=== PATIENT | male | born 1960 | race Caucasian/White ===

== ENCOUNTER 2016-11-27 14:04 | Inpatient (IN) | payer OTHER ==
[~2016-11-27] VITALS: Ht 175.3 cm; Wt 111.5 kg
[2016-11-30] MEDS ORDERED: DICL75TA PO (11:55)
[2016-11-30] MEDS ORDERED: ACET650T39 PO (11:55)
[2016-11-30] MEDS ORDERED: GABA300C5 PO (11:55)
[2016-11-30] MEDS ORDERED: IBUP200T2 PO (11:55)
[2016-12-15] MEDS ORDERED: VANCOMYCIN 1000 MG/NS 250 ML (for <70 kg) IV SCH ×2 (06:15)
[2016-12-15] MEDS ORDERED: SODIUM CHLORIDE 0.9% IV SCH (06:15)
[2016-12-15] MEDS ORDERED: ceFAZolin 2 GM PREMIX 50 ML IV SCH (06:15)
[2016-12-15] MEDS ORDERED: CHLORHEXIDINE GLUCONATE 4% SOLN 120 ML BTL TOPICAL SCH (06:15)
[2016-12-15] MEDS ORDERED: TRANEXAMIC ACID IV SCH (06:15)
[2016-12-15] MEDS ORDERED: EXPAREL PERI-ARTICULAR INJECTION (TOTAL VOL. 60 ML) P-ARTICULR SCH ×2 (06:15)
[2016-12-15 06:25] VITALS: BP 159/82; PULSE 87; RESP 20; TEMP 99; O2SAT 97
[2016-12-15] MEDS ORDERED: LACTATED RINGER'S 1000 ML IV PRN (06:30)
[2016-12-15] MEDS ORDERED: CHLORHEXIDINE GLUCONATE 2 % 1 PACK (2 CLOTHS) TOPICAL PRN (06:30)
[2016-12-15] MEDS ORDERED: METOPROLOL TARTRATE 25 MG TAB PO PRN (06:30)
[2016-12-15] MEDS ORDERED: POVIDONE IODINE 5% (ANTISEPSIS KIT) 4 APPLICATIONS EACH NARE PRN (06:30)
[2016-12-15] MEDS ORDERED: INSULIN HUMAN REGULAR 1,000 UNITS/10 ML VIAL SQ PRN (06:30)
[2016-12-15] MEDS ORDERED: SODIUM CHLORID 0.9% 500 ML IV PRN (06:30)
[2016-12-15] MEDS ORDERED: GENTAMICIN SULFATE 80 MG/2 ML VIAL ONE (07:22)
[2016-12-15] MEDS ORDERED: SODIUM CHLORIDE 0.9% 20 ML VIAL ONE (07:22)
[2016-12-15] MEDS ORDERED: EPINEPHrine HCL (1:1000) 1 MG/ML VIAL ONE (07:22)
[2016-12-15] MEDS ORDERED: XARE10TA PO (08:39)
[2016-12-15] MEDS ORDERED: HYDR-3583 PO (08:39)
--- NOTE | 2016-12-15 08:40 | HHI.FF ---
Face to Face Verification Diagnosis: (1) Status post total hip replacement, right Physical Therapy Gait training Hip: Total hip, Protocol: Right Right LE Weight Bearing: WB as tolerated Nursing Dressing Changes: Daily dressing change, Coverderm/Primapore (begin adding xeroform on POD 10) I have seen patient Jose Gutierrez on 12/15/16. My clinical findings support the need for the requested home health care services because: Ltd mobility - disease progression I certify that my clinical findings support that this patient is homebound because: Post-op weakness Maximus Kapoor Dec 15, 2016 08:40
--- NOTE | 2016-12-15 10:39 | PD.OP ---
cc: Anjel Garza MD Operative Report Date of Surgery: Dec 15, 2016 Preoperative Diagnosis: Severe right hip osteoarthritis Postoperative Diagnosis: Procedure: Right total hip arthroplasty Anesthesia: Gen. Surgeon: Anjel Garza Diagnostics Tech(s): CRISTINA Agrawal PA-C The surgical procedure was assisted by my physician assistant director. My P.A. presence was necessary throughout this case for the manipulation and positioning of the surgical extremity. My P.A. was assisting me throughout the duration of this procedure. The skill set of a physician assistant director was medically necessary to complete this procedure. During the surgical case the surgical clinical reviewer was working at the back table and the physician assistant director was directly assisting me. Operation and Findings: PLAN OF ACTIVITY Weight bear as tolerated. DRAINS: 7-mm KARISSA drain. IMPLANTS USED DePuy Corail size [11] collared stem with a size [54] [place] Gription cup and a [36+5] ceramic Biolox ceramic head, 54/36 Altrx liner DETAILS OF PROCEDURE: This patient has a long history of hip pain. Patient was found to have severe osteoarthritis. The patient had radiographic evidence of joint space narrowing with [id number] arthritis and osteophytes around the acetabulum as well as the femoral head. There was also some cystic changes. The patient failed conservative treatment with pain medications, anti-inflammatories, physical therapy, assistive devices including a cane, as well as therapeutic injection of the hip. Patient's hip arthritis was limiting his ability to ambulate and perform activities of daily living. The patient wished to proceed with surgery and informed consent was obtained. Operative site was marked. I discussed both posterior approach and anterior approach with the patient and decision was made for anterior approach. Patient was brought to OR and placed on OR table. IV sedation and general anesthesia was administered by anesthesiologist. Patient positioned on a Aislinn table and was given IV antibiotics. Time-out procedure was performed. The hip and thigh were prepped with alcohol followed by Hibiclens. The thigh was draped in the usual sterile fashion. Clean Air Suite was used for this procedure. The procedure began with a 5-inch incision over the anterolateral thigh. Subcutaneous tissue was dissected with Bovie. The fascia over the tensa fasciae latae was incised. Care was taken to avoid injury to the lateral femoral cutaneous nerve. The tensor muscle was retracted laterally. Sartorius was retracted medially. Retractors were now placed. The reflected head of the rectus is now elevated. A capsulotomy was performed over the anterior head capsule. Sutures were placed to help retract the capsule. At this point the femoral head and neck were identified. With soft tissue protected, oscillating saw was used to make a cut through the femoral neck, the femoral head was now removed. At this point attention was turned to preparation of the acetabulum. The labrum was excised. The acetabulum was sequentially reamed up to size [54]. A [place] cup was now placed. Fluoroscopy was used to aid in identification of appropriate version. Cup was fully impacted and found to have excellent fit. Hole eliminator was now placed. The liner was now impacted into the cup. At this point the hip was externally rotated. A hook was placed around the proximal femur. The capsule was released off the lateral and medial femur. The hip was now extended and adducted. Retractors were placed around the proximal femur to allow for exposure. Large osteophytes were identified around the lateral aspect of the acetabulum. These were removed using a rongeur. A box osteotome was used to remove the lateral cortex of the femoral neck. A broach was used to help lateralize the prosthesis. Canal finder was used to create a path down the canal. Next, the canal was sequentially broached up to size [11]. This was found to be an excellent fit. Calcar planer was placed. A standard head was placed, and the hip was reduced. The hip was found to have excellent stability with good range of motion. The leg lengths were measured under fluoroscopy and found to be equal compared to preoperatively. Trial broach was removed. The Corail stem was opened. Stem was fully impacted into the proximal femur in appropriate version. The femoral head was placed. The hip was again reduced. Fluoroscopy confirmed excellent alignment of prosthesis. The wound was thoroughly irrigated and capsule was closed with #1 Vicryl. The fascia over the tensor fasciae muscle was closed with #1 Vicryl, subcutaneous tissue was closed with 3-0 Vicryl and the skin was closed with tiffanie and Dermabond skin closure. The capsule layers were injected with a mixture of saline and bupivicaine. Dressings were applied. The patient was transferred to Recovery Room in stable condition. Anjel Garza MD Dec 15, 2016 10:39
[2016-12-15] MEDS ORDERED: NALOXONE HCL 0.4 MG/ML AMP IV PRN (10:45)
[2016-12-15] MEDS ORDERED: MORPHINE SULFATE 4 MG/ML INJ IV PUSH PRN (10:45)
[2016-12-15] MEDS ORDERED: SODIUM CHLORIDE 0.9% FLUSH 5 ML FLUSH IVF PRN (10:45)
[2016-12-15] MEDS ORDERED: DEXAMETHASONE SOD PHOS 20 MG/5 ML VIAL IV PUSH ONE (10:45)
[2016-12-15] MEDS ORDERED: ONDANSETRON HCL 4 MG/2 ML VIAL IVP PRN (10:45)
[2016-12-15] MEDS ORDERED: ACETAMINOPHEN/HYDROcodone 325 MG/7.5 MG TAB PO PRN (10:45)
[2016-12-15] MEDS ORDERED: ACETAMINOPHEN/HYDROcodone 325 MG/10 MG TAB PO PRN (10:45)
--- NOTE | 2016-12-15 10:49 | RADRPT ---
EXAM DATE/TIME: 12/15/2016 08:33 [facility] COMPARISON: No previous studies available for comparison. INDICATIONS : Right total hip arthroplasty. MEDICAL HISTORY : None. SURGICAL HISTORY : None. ENCOUNTER: Initial ACUITY: 1 day PAIN SCORE: Non-responsive. LOCATION: Right hip FINDINGS: A two view examination of the right hip was performed. Postsurgical changes following hip replacemen t are noted. Prostheses are well seated and satisfactorily aligned. There is no evidence of acute fracture. CONCLUSION: Satisfactory postoperative appearance of the right hip following joint replacement. Krishna Restrepo MD on December 15, 2016 at 10:47 Board Certified Radiologist. This report was verified electronically.
[2016-12-15] MEDS ORDERED: Post-op Orders (for Pharmacy) MISC XX ONE (10:59)
[2016-12-15] MEDS ORDERED: TRANEXAMIC ACID INJ 1,000 MG in SODIUM CHLORIDE 0.9% INJ 100 ML IV ONE (11:00)
[2016-12-15] MEDS ORDERED: MIDAZOLAM HCL 2 MG/2 ML VIAL ONE (11:10)
[2016-12-15] MEDS ORDERED: fentaNYL CITRATE 250 MCG/5 ML AMP ONE (11:11)
[2016-12-15] MEDS ORDERED: MORPHINE SULFATE 4 MG/ML INJ ONE (11:11)
[2016-12-15] MEDS: LACTATED RINGER'S 1000 ML INJ 1,000 ML IV SCH ×2 (11:26→19:51)
[2016-12-15] MEDS: KETOROLAC TROMETHAMINE 30 MG/ML (IVP) VIAL IV PUSH SCH ×2 (11:38→23:00)
[2016-12-15] MEDS ORDERED: LACTATED RINGER'S 1000 ML INJ 1,000 ML IV ONE (12:00)
[2016-12-15] MEDS ORDERED: DO NOT ADM ANY ANTICOAGULANT DRUGS PRN (12:00)
[2016-12-15] MEDS ORDERED: PROPOFOL 200 MG/20 ML AMP IV ONE (12:00)
[2016-12-15] MEDS ORDERED: NEOSTIGMINE 3 MG/3 ML SYR IV ONE (12:00)
[2016-12-15] MEDS ORDERED: ONDANSETRON HCL 4 MG/2 ML VIAL IV PUSH ONE (12:00)
[2016-12-15] MEDS ORDERED: ePHEDrine/NS 25 MG/5 ML SYR IV ONE (12:00)
[2016-12-15] MEDS ORDERED: PHENYLEPH/NS 1000 MCG/10 ML SYR IV ONE (12:00)
--- NOTE | 2016-12-15 12:20 | RADRPT ---
EXAM DATE/TIME: 12/15/2016 11:23 [facility] COMPARISON: No previous studies available for comparison. INDICATIONS : Post op right hip MEDICAL HISTORY : None. SURGICAL HISTORY : None. ENCOUNTER: Initial ACUITY: 1 day PAIN SCORE: 0/10 LOCATION: Right hip and pelvis FINDINGS: Patient is status post placement of a right hip prosthesis. There is good position and alignment of t he prosthesis and bony structures. The bony structures are grossly intact. Postsurgical changes are p resent. There is extensive osteoarthritis of the left hip joint. CONCLUSION: Good position and alignment on this postoperative examination. Luis Mayes MD on December 15, 2016 at 12:19 Board Certified Radiologist. This report was verified electronically.
[2016-12-15] MEDS: ceFAZolin 2 GM PREMIX 50 ML IV SCH ×2 (13:35→19:51)
[2016-12-15 14:20] VITALS: BP 125/73; PULSE 96; RESP 18; TEMP 96.4; O2SAT 98
[2016-12-15 16:30] VITALS: O2SAT 98
[2016-12-15] MEDS: VANCOMYCIN INJ 1,000 MG in SODIUM CHLOR 0.9% 250 ML INJ 250 ML IV SCH (18:51)
[2016-12-15] MEDS: SODIUM CHLORIDE 0.9% FLUSH 5 ML FLUSH IVF SCH (19:52)
[2016-12-15 20:23] VITALS: BP 122/65; PULSE 92; RESP 18; TEMP 97.1; O2SAT 95
[2016-12-15 20:46] VITALS: O2SAT 98
[2016-12-15] MEDS ORDERED: GABAPENTIN 300 MG CAP PO SCH (21:00)
[2016-12-16 00:15] VITALS: BP 151/69; PULSE 94; RESP 18; TEMP 96.7; O2SAT 96
[2016-12-16] MEDS ORDERED: MAGNESIUM HYDROXIDE SUSP 30 ML CUP PO PRN (01:00)
[2016-12-16] MEDS: ceFAZolin 2 GM PREMIX 50 ML IV SCH (01:05)
[2016-12-16 04:33] VITALS: BP 129/75; PULSE 84; RESP 18; TEMP 96.7; O2SAT 97
[2016-12-16] MEDS: VANCOMYCIN INJ 1,000 MG in SODIUM CHLOR 0.9% 250 ML INJ 250 ML IV SCH (06:13)
--- NOTE | 2016-12-16 07:11 | PD.ORT.PN ---
Subjective Subjective Remarks Doing well POD 1 from surgery of right total hip arthroplasty Objective Vitals Vital Signs Date Time Temp Pulse Resp B/P Pulse Ox O2 Delivery O2 Flow Rate FiO2 12/16/16 04:33 96.7 84 18 129/75 97 12/16/16 00:15 96.7 94 18 151/69 96 12/15/16 20:46 98 21 12/15/16 20:23 97.1 92 18 122/65 95 12/15/16 16:30 98 21 12/15/16 14:20 96.4 96 18 125/73 98 12/15/16 13:30 97.4 95 14 117/77 100 Nasal Cannula 2 12/15/16 13:00 99 17 119/58 99 Nasal Cannula 2 12/15/16 12:30 86 15 120/59 99 Nasal Cannula 2 12/15/16 12:00 88 14 129/74 99 Nasal Cannula 2 12/15/16 11:45 74 13 128/75 99 Nasal Cannula 2 12/15/16 11:30 96 14 136/85 94 Nasal Cannula 2 12/15/16 11:15 93 14 137/74 93 Nasal Cannula 2 12/15/16 11:02 98.5 110 16 144/91 95 Simple Mask 6 I/O 12/15/16 12/15/16 12/15/16 12/16/16 12/16/16 12/16/16 06:59 14:59 22:59 06:59 14:59 22:59 Intake Total 1250 ml 719 ml 1226 ml Output Total 510 ml 160 ml 1380 ml Balance 740 ml 559 ml -154 ml Intake Oral 50 ml 480 ml 480 ml IV Total 100 ml 239 ml 746 ml Other 1100 ml Output Urine Total 100 ml 1300 ml Drainage Total 60 ml 60 ml 80 ml Estimated Blood Loss 450 ml # Voids 1 1 # Bowel Movements 0 0 Imaging Last 24 hours Impressions Hip and Pelvis X-Ray 12/15/16 1033 Signed Impressions: Service Date/Time: Thursday, December 15, 2016 11:23 - CONCLUSION: Good position and alignment on this postoperative examination. Luis Mayes MD Objective Remarks Right lower extremity: Clean dry dressings intact. Minimal swelling. Intact sensation distally with good capillary refills. Strong dorsal flexion plantar flexion foot Assessment & Plan Assessment and Plan Right anterior total hip arthroplasty POD 1 Physical therapy weightbearing as tolerated twice a day Dressing change today after physical therapy with drain removal Lovenox then convert to Xarelto after discharge Plan on discharge today to home if doing well otherwise tomorrow morning Incentive spirometry Case management for home health care with 's choice Follow-up Dr. Garza or PA in 2 weeks Felix Mackey Jr. Dec 16, 2016 07:11
[2016-12-16] MEDS ORDERED: WALKER WHEELS/F1 MIS (07:12)
[2016-12-16 07:54] VITALS: BP 154/75; PULSE 96; RESP 18; TEMP 96.1; O2SAT 97
[2016-12-16 08:13] LABS: HEMATOCRIT 36.3 % (39.0-51.0); REVIEW FLAG FINAL
[2016-12-16] MEDS: SODIUM CHLORIDE 0.9% FLUSH 5 ML FLUSH IVF SCH (09:00)
[2016-12-16] MEDS ORDERED: ENOXAPARIN SODIUM 40 MG/0.4 ML SYRINGE SQ SCH (10:00)
[2016-12-16 11:17] VITALS: O2SAT 97
[2016-12-16] MEDS: LACTATED RINGER'S 1000 ML INJ 1,000 ML IV SCH (11:33)
[2016-12-16 11:58] VITALS: BP 123/64; PULSE 110; RESP 18; TEMP 95.4; O2SAT 97
[2016-12-16] MEDS: KETOROLAC TROMETHAMINE 30 MG/ML (IVP) VIAL IV PUSH SCH (12:00)
[2016-12-16] MEDS ORDERED: DOCUSATE SODIUM 100 MG CAP PO SCH (21:00)
== END 2016-12-16 20:34 | disposition home health service (06) | DRG 470 ==
LOC: HSDI 12-15 05:45 → EDUNIT# 12-15 10:30 → N06B 12-15 14:05
PROVIDERS: ADMIT Orthopaedic Surgery Orthopaedic Trauma; ATTEND Orthopaedic Surgery Orthopaedic Trauma
PROC: 0SR904A Replacement of Right Hip Joint with Ceramic on Polyethylene Synthetic Substitute, Uncemented, Open Approach (ICD-10-PCS; principal; 2016-12-15 08:03)
DX: M16.11 Unilateral primary osteoarthritis, right hip (principal); E66.9 Obesity, unspecified; Z68.36 Body mass index [BMI] 36.0-36.9, adult
CPT/HCPCS: 73501; 73502; 76000; 85014; 85018; 86850; 86900; 86901; C1776; C9290; J0171; J0690; J1100; J1580; J1650; J1885; J2250; J2270; J2370; J2405; J2710; J3010; J3370; J7050; J7120

== ENCOUNTER → 2016-11-30 | Outpatient (CLI) | payer OTHER ==
[~2016-11-30] MED LIST: ACET650T39 PO; DICL75TA PO; GABA300C5 PO; HYDR-3583 PO; IBUP200T2 PO; WALKER WHEELS/F1 MIS; XARE10TA PO
== END ==
LOC: CPRE 11:43
PROVIDERS: ATTEND Orthopaedic Surgery Orthopaedic Trauma
DX: Z01.812 Encounter for preprocedural laboratory examination (principal); M79.609 Pain in unspecified limb; Z13.9 Encounter for screening, unspecified; Z79.01 Long term (current) use of anticoagulants; Z96.60 Presence of unspecified orthopedic joint implant

== ENCOUNTER → 2017-02-02 | Outpatient (CLI) | payer OTHER ==
[~2017-02-02] MED LIST changes: -DICL75TA PO; -IBUP200T2 PO; +WALKER/ADULT/FO1 MIS
== END ==
LOC: CPRE 09:40
PROVIDERS: ATTEND Orthopaedic Surgery Orthopaedic Trauma
DX: Z01.810 Encounter for preprocedural cardiovascular examination (principal); Z01.811 Encounter for preprocedural respiratory examination; Z01.812 Encounter for preprocedural laboratory examination; M79.609 Pain in unspecified limb

== ENCOUNTER 2017-02-09 05:18 | Inpatient (IN) | payer OTHER ==
[~2017-02-09] VITALS: Ht 175.3 cm; Wt 109.5 kg
[~2017-02-09 05:18] MED LIST changes: -HYDR-3583 PO; -WALKER WHEELS/F1 MIS; -WALKER/ADULT/FO1 MIS; -XARE10TA PO
[2017-02-09] MEDS ORDERED: TRANEXAMIC ACID IV SCH (05:45)
[2017-02-09] MEDS ORDERED: INSULIN HUMAN REGULAR 1,000 UNITS/10 ML VIAL SQ PRN (05:45)
[2017-02-09] MEDS ORDERED: CHLORHEXIDINE GLUCONATE 4% SOLN 120 ML BTL TOPICAL SCH (05:45)
[2017-02-09] MEDS ORDERED: LACTATED RINGER'S 1000 ML IV PRN (05:45)
[2017-02-09] MEDS ORDERED: SODIUM CHLORID 0.9% 500 ML IV PRN (05:45)
[2017-02-09] MEDS ORDERED: POVIDONE IODINE 5% (ANTISEPSIS KIT) 4 APPLICATIONS EACH NARE PRN (05:45)
[2017-02-09] MEDS ORDERED: ceFAZolin 2 GM PREMIX 50 ML IV SCH (05:45)
[2017-02-09] MEDS ORDERED: METOPROLOL TARTRATE 25 MG TAB PO PRN (05:45)
[2017-02-09] MEDS ORDERED: VANCOMYCIN 1000 MG/NS 250 ML (for <70 kg) IV SCH ×2 (05:45)
[2017-02-09] MEDS ORDERED: CHLORHEXIDINE GLUCONATE 2 % 1 PACK (2 CLOTHS) TOPICAL PRN (05:45)
[2017-02-09] MEDS ORDERED: EXPAREL PERI-ARTICULAR INJECTION (TOTAL VOL. 60 ML) P-ARTICULR SCH ×2 (05:45)
[2017-02-09] MEDS ORDERED: SODIUM CHLORIDE 0.9% IV SCH (05:45)
[2017-02-09] MEDS ORDERED: GENTAMICIN SULFATE 80 MG/2 ML VIAL ONE (06:20)
[2017-02-09] MEDS ORDERED: ACETAMINOPHEN 1000 MG/100 ML 100 ML IV ONE (06:29)
[2017-02-09] MEDS ORDERED: FAMOTIDINE 20 MG/2 ML VIAL ONE (06:29)
[2017-02-09] MEDS ORDERED: HYDR-3583 PO (08:26)
[2017-02-09] MEDS ORDERED: WALKER/ADULT/FO1 MIS (08:26)
[2017-02-09] MEDS ORDERED: XARE10TA PO (08:26)
--- NOTE | 2017-02-09 08:27 | HHI.FF ---
Face to Face Verification Diagnosis: (1) Status post total hip replacement, left Physical Therapy Gait training Hip: Total hip, Protocol: Left, Progress to weight bearing Left LE Weight Bearing: WB as tolerated Nursing Dressing Changes: Daily dressing change, Coverderm/Primapore (begin adding xeroform on POD 10) I have seen patient Jsoe Gutierrez on 02/09/17. My clinical findings support the need for the requested home health care services because: Ltd mobility - disease progression I certify that my clinical findings support that this patient is homebound because: Post-op weakness Maximus Kapoor Feb 09, 2017 08:27
--- NOTE | 2017-02-09 09:05 | PD.OP ---
cc: Anjel Garza MD Operative Report Date of Surgery: Feb 09, 2017 Preoperative Diagnosis: Severe left hip osteoarthritis Postoperative Diagnosis: Procedure: Left total hip arthroplasty via anterior approach Anesthesia: Gen. Surgeon: Anjel Garza Superintendent [employer](s): CRISTINA Agrawal PA-C The surgical procedure was assisted by my physician executive assistant. My P.A. presence was necessary throughout this case for the manipulation and positioning of the surgical extremity. My P.A. was assisting me throughout the duration of this procedure. The skill set of a physician executive assistant was medically necessary to complete this procedure. During the surgical case the dialysis equipment technician was working at the back table and the physician executive assistant was directly assisting me. Operation and Findings: PLAN OF ACTIVITY Weight bear as tolerated. DRAINS: 7-mm KARISSA drain. IMPLANTS USED DePuy Corail size [13] collared stem with a size [56] [place] Gription cup, [56 /36] Altrx poly liner, and a [36+5] ceramic Biolox ceramic head. DETAILS OF PROCEDURE: This patient has a long history of hip pain. Patient was found to have severe osteoarthritis. The patient had radiographic evidence of joint space narrowing with akdg-wj-[id number] arthritis and osteophytes around the acetabulum as well as the femoral head. There was also some cystic changes. The patient failed conservative treatment with pain medications, anti-inflammatories, physical therapy, assistive devices including a cane, as well as therapeutic injection of the hip. Patient's hip arthritis was limiting his ability to ambulate and perform activities of daily living. The patient wished to proceed with surgery and informed consent was obtained. Operative site was marked. I discussed both posterior approach and anterior approach with the patient and decision was made for anterior approach. Patient was brought to OR and placed on OR table. IV sedation and general anesthesia was administered by anesthesiologist. Patient positioned on a Aislinn table and was given IV antibiotics. Time-out procedure was performed. The hip and thigh were prepped with alcohol followed by Hibiclens. The thigh was draped in the usual sterile fashion. Clean Air Suite was used for this procedure. The procedure began with a 5-inch incision over the anterolateral thigh. Subcutaneous tissue was dissected with Bovie. The fascia over the tensa fasciae latae was incised. Care was taken to avoid injury to the lateral femoral cutaneous nerve. The tensor muscle was retracted laterally. Sartorius was retracted medially. Retractors were now placed. The reflected head of the rectus is now elevated. A capsulotomy was performed over the anterior head capsule. Sutures were placed to help retract the capsule. At this point the femoral head and neck were identified. With soft tissue protected, oscillating saw was used to make a cut through the femoral neck, the femoral head was now removed. At this point attention was turned to preparation of the acetabulum. The labrum was excised. The acetabulum was sequentially reamed up to size [56]. A [place] cup was now placed. Fluoroscopy was used to aid in identification of appropriate version. Cup was fully impacted and found to have excellent fit. Hole eliminator was now placed. The liner was now impacted into the cup. Patient also had large osteophytes around the acetabulum. A rongeur and osteotome were used to remove most of the osteophytes. At this point the hip was externally rotated. A hook was placed around the proximal femur. The capsule was released off the lateral and medial femur. The hip was now extended and adducted. Retractors were placed around the proximal femur to allow for exposure. A box osteotome was used to remove the lateral cortex of the femoral neck. A broach was used to help lateralize the prosthesis. Canal finder was used to create a path down the canal. Next, the canal was sequentially broached up to size [13]. This was found to be an excellent fit. Calcar planer was placed. A standard head was placed, and the hip was reduced. The hip was found to have excellent stability with good range of motion. The leg lengths were measured under fluoroscopy and found to be equal compared to preoperatively. Trial broach was removed. The Corail stem was opened. Stem was fully impacted into the proximal femur in appropriate version. The femoral head was placed. The hip was again reduced. Fluoroscopy confirmed excellent alignment of prosthesis. The wound was thoroughly irrigated and capsule was closed with #1 Vicryl. The fascia over the tensor fasciae muscle was closed with #1 Vicryl, subcutaneous tissue was closed with 3-0 Vicryl and the skin was closed with tiffanie and Dermabond skin closure. The capsule layers, muscle, and subcutaneous tissue were injected with a mixture of saline and bupivicaine. Dressings were applied. The patient was transferred to Recovery Room in stable condition. Anjel Garza MD Feb 09, 2017 09:05
[2017-02-09] MEDS ORDERED: Post-op Orders (for Pharmacy) MISC XX ONE (09:15)
[2017-02-09] MEDS ORDERED: MORPHINE SULFATE 4 MG/ML INJ IV PUSH PRN (09:15)
[2017-02-09] MEDS ORDERED: ONDANSETRON HCL 4 MG/2 ML VIAL IVP PRN (09:15)
[2017-02-09] MEDS ORDERED: ACETAMINOPHEN/HYDROcodone 325 MG/7.5 MG TAB PO PRN (09:15)
[2017-02-09] MEDS ORDERED: SODIUM CHLORIDE 0.9% FLUSH 5 ML FLUSH IVF PRN (09:15)
[2017-02-09] MEDS ORDERED: NALOXONE HCL 0.4 MG/ML AMP IV PRN (09:15)
[2017-02-09] MEDS ORDERED: DO NOT ADM ANY ANTICOAGULANT DRUGS PRN (09:24)
[2017-02-09] MEDS: LACTATED RINGER'S 1000 ML INJ 1,000 ML IV SCH ×2 (09:30→21:31)
[2017-02-09] MEDS ORDERED: TRANEXAMIC ACID INJ 1,000 MG in SODIUM CHLORIDE 0.9% INJ 100 ML IV ONE ×2 (09:30→15:00)
[2017-02-09] MEDS ORDERED: *morphine SULFATE 8 MG/ML PERIprocedure ONLY ONE (09:37)
[2017-02-09] MEDS: KETOROLAC TROMETHAMINE 30 MG/ML (IVP) VIAL IV PUSH SCH ×2 (10:40→23:07)
--- NOTE | 2017-02-09 10:47 | RADRPT ---
EXAM DATE/TIME: 02/09/2017 10:06 [facility] COMPARISON: No previous studies available for comparison. INDICATIONS : Post-op total left hip arthroplasty. MEDICAL HISTORY : None. SURGICAL HISTORY : None. ENCOUNTER: Initial ACUITY: 1 day PAIN SCORE: 6/10 LOCATION: Left Hip. FINDINGS: Post surgical features of left hip arthroplasty with arthroplastic components in normal anatomic alig nment. Osseous structures appear intact without evidence for significant bony fracture. Prior right h ip arthroplasty in anatomic alignment. Surgical drain and postsurgical sutures in the left hip soft t issues. CONCLUSION: 1. Status post left hip arthroplasty in anatomic alignment without fracture. Kendall Mcpherson MD on February 09, 2017 at 10:45 Board Certified Radiologist. This report was verified electronically.
[2017-02-09] MEDS ORDERED: ROCURONIUM INJ 50 MG/5 ML SYRINGE IV PUSH ONE (12:00)
[2017-02-09] MEDS ORDERED: ONDANSETRON HCL 4 MG/2 ML VIAL IV PUSH ONE (12:00)
[2017-02-09] MEDS ORDERED: NEOSTIGMINE 3 MG/3 ML SYR IV ONE (12:00)
[2017-02-09] MEDS ORDERED: DEXAMETHASONE SOD PHOS 4 MG/ML VIAL IV ONE (12:00)
[2017-02-09] MEDS ORDERED: MIDAZOLAM HCL 2 MG/2 ML VIAL IV ONE (12:00)
[2017-02-09] MEDS ORDERED: PROPOFOL 200 MG/20 ML AMP IV ONE (12:00)
[2017-02-09] MEDS ORDERED: PHENYLEPH/NS 1000 MCG/10 ML SYR IV ONE (12:00)
[2017-02-09] MEDS ORDERED: LIDOCAINE HCL 1% PF 5 ML AMPULE OTHER ONE (12:00)
[2017-02-09] MEDS ORDERED: GLYCOPYRROLATE 1 MG/5 ML SYRINGE IV PUSH ONE (12:00)
--- NOTE | 2017-02-09 13:09 | RADRPT ---
EXAM DATE/TIME: 02/09/2017 07:16 [facility] COMPARISON: No previous studies available for comparison. INDICATIONS : Left total hip arthroplasty. MEDICAL HISTORY : Unobtainable. SURGICAL HISTORY : Right total hip. ENCOUNTER: Initial ACUITY: 1 day PAIN SCORE: Non-responsive. LOCATION: Left hip FINDINGS: 3 fluoroscopic hold images demonstrating left hip arthroplasty in normal anatomic alignment. Osseous structures appear grossly intact. CONCLUSION: 1. Left hip arthroplasty in anatomic alignment without displaced acute fracture. Kendall Mcpherson MD on February 09, 2017 at 13:07 Board Certified Radiologist. This report was verified electronically.
[2017-02-09] MEDS: ceFAZolin 2 GM PREMIX 50 ML IV SCH ×2 (13:10→20:11)
[2017-02-09 14:00] VITALS: BP 165/83; PULSE 109; RESP 16; TEMP 97; O2SAT 98
[2017-02-09 15:15] VITALS: O2SAT 97
[2017-02-09 16:00] VITALS: BP 144/70; PULSE 106; RESP 16; TEMP 97.7; O2SAT 97
[2017-02-09] MEDS: VANCOMYCIN INJ 1,000 MG in SODIUM CHLOR 0.9% 250 ML INJ 250 ML IV SCH (18:50)
[2017-02-09] MEDS: GABAPENTIN 300 MG CAP PO SCH (20:11)
[2017-02-09] MEDS: SODIUM CHLORIDE 0.9% FLUSH 5 ML FLUSH IVF SCH (20:16)
[2017-02-09 20:40] VITALS: BP 146/73; PULSE 97; RESP 17; TEMP 96.7; O2SAT 100
[2017-02-09 21:54] VITALS: O2SAT 98
[2017-02-10] VITALS (7 sets, daily range): BP systolic 127–150; BP diastolic 65–86; PULSE 90–112; RESP 17–19; TEMP 97.2–97.9; O2SAT 93–99
[2017-02-10] MEDS: ceFAZolin 2 GM PREMIX 50 ML IV SCH (01:58)
[2017-02-10 06:19] LABS: HEMATOCRIT 38.1 % (39.0-51.0); REVIEW FLAG FINAL
[2017-02-10] MEDS: VANCOMYCIN INJ 1,000 MG in SODIUM CHLOR 0.9% 250 ML INJ 250 ML IV SCH (06:21)
--- NOTE | 2017-02-10 06:47 | PD.ORT.PN ---
Subjective Subjective Remarks POD 1 s/p left DINESH doing well. reports soreness. out of bed to bathroom yesterday Objective Vitals Vital Signs Date Time Temp Pulse Resp B/P (MAP) Pulse Ox O2 Delivery O2 Flow Rate FiO2 02/10/17 01:26 97.9 96 17 150/76 (100) 99 02/09/17 21:54 98 Nasal Cannula 2.00 02/09/17 20:40 96.7 97 17 146/73 (97) 100 02/09/17 16:00 97.7 106 16 144/70 (94) 97 02/09/17 15:15 97 Nasal Cannula 2.00 02/09/17 14:00 97.0 109 16 165/83 (110) 98 02/09/17 13:15 98.1 84 14 126/73 (90) 98 Nasal Cannula 2 02/09/17 12:15 91 14 143/81 (101) 100 Nasal Cannula 2 02/09/17 11:15 89 14 139/73 (95) 100 Nasal Cannula 2 02/09/17 10:15 82 14 136/72 (93) 100 Nasal Cannula 4 02/09/17 10:00 85 14 138/74 (95) 100 Nasal Cannula 4 02/09/17 09:45 88 14 124/76 (92) 100 Nasal Cannula 4 02/09/17 09:30 98.5 75 14 134/67 (89) 100 Nasal Cannula 4 I/O 02/09/17 02/09/17 02/09/17 02/10/17 02/10/17 02/10/17 07:00 15:00 23:00 07:00 15:00 23:00 Intake Total 1110 ml 780 ml 290 ml Output Total 300 ml 470 ml 550 ml Balance 810 ml 310 ml -260 ml Intake Oral 480 ml 240 ml IV Total 110 ml 300 ml 50 ml Other 1000 ml Output Urine Total 300 ml 550 ml Drainage Total 170 ml Estimated Blood Loss 300 ml # Bowel Movements 0 0 Result Diagram: 02/10/17 06 Imaging Last 24 hours Impressions Hip and Pelvis X-Ray 02/09/17900 Signed Impressions: Service Date/Time: Thursday, February 09, 2017 10:06 - CONCLUSION: 1. Status post left hip arthroplasty in anatomic alignment without fracture. Kendall Mcpherson MD Objective Remarks LLE: dressings clean and dry. intact. +drain. NVI Assessment & Plan Assessment and Plan 1) Left Anterior DINESH - POd 1 -WBAT -DC drain today -daily dressing changes -work with PT today. if doing well and comfortable, can go home today. will put DC orders in. if struggling, can stay another night and home tomorrow -[facility] set up -scripts on chart -f/u with Alana or RUDI in 2 weeks Maximus Kapoor Feb 10, 2017 06:47
[2017-02-10] MEDS: SODIUM CHLORIDE 0.9% FLUSH 5 ML FLUSH IVF SCH ×2 (09:00→20:01)
[2017-02-10] MEDS: ENOXAPARIN SODIUM 40 MG/0.4 ML SYRINGE SQ SCH (09:33)
[2017-02-10] MEDS: ACETAMINOPHEN/HYDROcodone 325 MG/10 MG TAB PO PRN ×2 (09:37→19:14)
[2017-02-10] MEDS: LACTATED RINGER'S 1000 ML INJ 1,000 ML IV SCH ×2 (10:01→20:01)
[2017-02-10] MEDS: KETOROLAC TROMETHAMINE 30 MG/ML (IVP) VIAL IV PUSH SCH ×2 (11:53→21:47)
[2017-02-10] MEDS: DOCUSATE SODIUM 100 MG CAP PO SCH (20:01)
[2017-02-10] MEDS: GABAPENTIN 300 MG CAP PO SCH (20:01)
[2017-02-11 00:20] VITALS: BP 122/66; PULSE 103; RESP 18; TEMP 97.6; O2SAT 97
--- NOTE | 2017-02-11 06:46 | PD.ORT.PN ---
Subjective Subjective Remarks Doing well. States this hip has bothered him a little more than his right hip replacement. Feels that he will be safe to go home today Objective Vitals Vital Signs Date Time Temp Pulse Resp B/P (MAP) Pulse Ox O2 Delivery O2 Flow Rate FiO2 02/11/17 00:20 97.6 103 18 122/66 (84) 97 02/10/17 21:39 98 02/10/17 20:45 97.6 112 18 149/71 (97) 98 02/10/17 16:00 97.2 99 19 142/71 (94) 98 02/10/17 13:07 93 02/10/17 11:39 97.7 112 19 127/65 (85) 97 02/10/17 08:00 97.2 90 19 148/86 (106) 97 I/O 02/10/17 02/10/17 02/10/17 02/11/17 02/11/17 02/11/17 06:59 14:59 22:59 06:59 14:59 22:59 Intake Total 290 ml 650 ml 360 ml Output Total 550 ml 400 ml 400 ml Balance -260 ml 250 ml -40 ml Intake Oral 240 ml 650 ml 360 ml IV Total 50 ml Output Urine Total 550 ml 400 ml 300 ml Drainage Total 100 ml # Bowel Movements 0 0 Result Diagram: 02/10/17 0600 Imaging Last 24 hours Impressions Hip and Pelvis X-Ray 02/09/17 0901 Signed Impressions: Service Date/Time: Thursday, February 09, 2017 10:06 - CONCLUSION: 1. Status post left hip arthroplasty in anatomic alignment without fracture. Kendall Mcpherson MD Objective Remarks Left lower extremity: Clean dry dressings intact drain removed yesterday. Mild swelling. Intact sensation distally with good capillary refills. Strong dorsiflexion and plantar flexion of foot Assessment & Plan Assessment and Plan 1) Left Anterior DINESH - POD #2 -WBAT -daily dressing changes -Discharged home today -Lovenox then convert to Xarelto after discharge to home -C set up -scripts on chart -f/u with Alana or RUDI in 2 weeks Felix Mackey Jr. Feb 11, 2017 06:46
--- NOTE | 2017-02-11 06:53 | HHI.DS ---
Discharge Summary Admission Date Feb 09, 2017 at 05:18 Discharge Date: Feb 11, 2017 Admitting Diagnosis Left hip osteoarthritis Diagnosis: (1) Status post total hip replacement, left Diagnosis: Principal ICD Codes: Z96.642 - Presence of left artificial hip joint Procedures Left anterior total hip replacement CBC/BMP: 02/10/17 0600 Significant Findings Laboratory Tests Test 02/10/17 06:00 Hemoglobin 12.8 GM/DL (13.0-17.0) Hematocrit 38.1 % (39.0-51.0) PE at Discharge Left lower extremity: Clean dry dressings intact drain removed yesterday. Mild swelling. Intact sensation distally with good capillary refills. Strong dorsiflexion and plantar flexion of foot Hospital Course Patient admitted from outpatient basis for elective left total hip arthroplasty. He tolerated the procedure well. He is out of bed with therapy on postoperative day 0. He has slight pain and difficulty ambulating on postop day 1. By postoperative day 2, he was hemodynamically stable, his drain was discontinued, he is pain was controlled he was ambulating with a walker. He is fit for discharge home with home healthcare. He will remain fully weightbearing. He on a daily dressing changes with a primapore dressing and will begin adding Xeroform on postop day 10. He'll follow-up in the office Dr. Warner or his PA in 2 weeks Pt Condition on Discharge: Good Discharge Disposition: Disch w/ Home Health Serv Discharge Instructions Diet Instructions: As Tolerated, No Restrictions Activities You Can Perform: Weight Bearing as Isabel Follow up Referrals: Orthopedics - 2 Weeks @ [facility] with Anjel Warner MD SNF/[facility]/ with [facility] New Medications: Hydrocodone-Acetaminophen (Hydrocodone-Acetaminophen) 10-325 mg Tab 1 TAB PO Q4H PRN for PAIN, #60 TAB 0 Refills Rivaroxaban (Xarelto) 10 Mg Tab 10 MG PO DAILY for Blood Clot Prevention for 14 Days, #14 TAB 0 Refills Walker/Adult/Folding (Walker/Adult/Folding) 1 Mis Mis EA .ROUTE DIRECTED, #1 0 Refills Continued Medications: Gabapentin (Gabapentin) 300 Mg Cap 300 MG PO HS, #30 CAP 0 Refills Discontinued Medications: Acetaminophen (Acetaminophen ER) 650 Mg Tablet.er 650 MG PO Q4HR PRN for PAIN SCALE 1 TO 10 Maximus Kapoor Feb 11, 2017 06:53
[2017-02-11 08:00] VITALS: BP 147/77; PULSE 105; RESP 18; TEMP 98.3; O2SAT 98
[2017-02-11] MEDS: SODIUM CHLORIDE 0.9% FLUSH 5 ML FLUSH IVF SCH (09:00)
[2017-02-11] MEDS: DOCUSATE SODIUM 100 MG CAP PO SCH (09:20)
[2017-02-11] MEDS: ENOXAPARIN SODIUM 40 MG/0.4 ML SYRINGE SQ SCH (09:20)
[2017-02-11] MEDS: ACETAMINOPHEN/HYDROcodone 325 MG/10 MG TAB PO PRN ×2 (09:21→13:24)
[2017-02-11] MEDS: LACTATED RINGER'S 1000 ML INJ 1,000 ML IV SCH (11:01)
[2017-02-11 12:00] VITALS: BP 103/71; PULSE 105; RESP 18; TEMP 97.9; O2SAT 98
== END 2017-02-11 16:16 | disposition home health service (06) | DRG 470 ==
LOC: HSDI 05:18 → N06B 13:29
PROVIDERS: ADMIT Orthopaedic Surgery Orthopaedic Trauma; ATTEND Orthopaedic Surgery Orthopaedic Trauma
PROC: 0SRB04A Replacement of Left Hip Joint with Ceramic on Polyethylene Synthetic Substitute, Uncemented, Open Approach (ICD-10-PCS; principal; 2017-02-09 06:37)
DX: M16.12 Unilateral primary osteoarthritis, left hip (principal); E66.9 Obesity, unspecified; Z68.35 Body mass index [BMI] 35.0-35.9, adult; Z96.641 Presence of right artificial hip joint
CPT/HCPCS: 73501; 73502; 76000; 85014; 85018; 86850; 86900; 86901; C1776; C9290; J0131; J0690; J1100; J1580; J1650; J1885; J2250; J2270; J2370; J2405; J2710; J3010; J3370; J7050; J7120